=== PATIENT | female | born 1950 | race African-American/Black ===

== ENCOUNTER → 2020-11-12 | Day surgery (SDC) | payer MEDICARE, OTHER ==
[~2020-11-12] MED LIST: ADVAIR 100-501 EACH INH; COZAAR100 MG PO; HCTZ25 MG PO; HYDRALAZINE25 MG PO; LEVOXYL100 MCG PO; METFORMIN HCL500 M3 PO; METOPROLOL SUC100 MG PO; OMEPRAZOLE40 MG PO; POTASSIUM CHLO10 ME1 PO; VENTOLIN HFA IN18 GM INH; VITAMIN D310 MC1 PO; ZOCOR10 MG PO
[2020-11-12 08:40] LABS: HCT 38.3 % (37.0-47.0); MCH 26.4 pg (25.0-31.0); MCHC 33.9 g/dL (32.0-36.0); MCV 77.7 fL (78.0-100.0); MPV 12.9 fL (6.0-9.5); RBC 4.93 M/uL (4.20-5.40); RDW 15.2 % (11.5-14.0); WBC 7.3 K/uL (4.0-10.5)
[2020-11-12 10:31] LABS: ALBUMIN 3.8 g/dL (3.4-5.0); BILIRUBIN - TOTAL 0.6 mg/dL (0.2-1.0); BUN/CREAT RATIO (CALC) 10.8 RATIO; CREATININE 0.74 mg/dL (0.51-0.95); GLOBULIN (CALCULATION) 4.1 g/dL; POTASSIUM 3.7 mmol/L (3.5-5.1); TOTAL PROTEIN 7.9 g/dL (6.4-8.2)
== END | disposition home or self-care (01) ==
LOC: FAS 08:01
PROVIDERS: Surgery
DX: K31.7 Polyp of stomach and duodenum (principal); K63.5 Polyp of colon; K31.89 Other diseases of stomach and duodenum; K58.0 Irritable bowel syndrome with diarrhea; K21.9 Gastro-esophageal reflux disease without esophagitis; E11.9 Type 2 diabetes mellitus without complications; J45.909 Unspecified asthma, uncomplicated; I10 Essential (primary) hypertension; E66.9 Obesity, unspecified; Z68.36 Body mass index [BMI] 36.0-36.9, adult; Z86.010 Personal history of colon polyps; Z87.891 Personal history of nicotine dependence; Z79.82 Long term (current) use of aspirin; Z79.84 Long term (current) use of oral hypoglycemic drugs; Z79.899 Other long term (current) drug therapy; Z88.5 Allergy status to narcotic agent; Z88.8 Allergy status to other drugs, medicaments and biological substances
CPT/HCPCS: 36415; 80053; 82962; J2704; J7120